=== PATIENT | male | born 1945 | race Asian ===

== ENCOUNTER 2020-12-30 10:04 | Inpatient (IN) | payer MEDICARE, OTHER ==
[~2020-12-30] VITALS: Ht 154.9 cm; Wt 68.2 kg
[2020-12-30] MEDS ORDERED: TERA5CAP77 PO (10:14)
[2020-12-30] MEDS ORDERED: ATOR40TA28 PO (10:14)
[2020-12-30] MEDS ORDERED: ASPI-1444 PO (10:14)
[2020-12-30] MEDS ORDERED: GLIP10 PO (10:14)
[2020-12-30] MEDS ORDERED: SITA100 PO (10:14)
[2020-12-30] MEDS ORDERED: DICY20TA2 PO (10:14)
[2020-12-30] MEDS ORDERED: METF-960 PO (10:14)
[2020-12-30] MEDS ORDERED: SODIUM CHLORIDE 0.9% 1,000 ML IV ONE (10:45)
[2020-12-30] MEDS ORDERED: MORPHINE SULFATE 2 MG/ML SYRINGE IVP ONE (10:45)
[2020-12-30] MEDS ORDERED: ONDANSETRON HCL 4 MG/2 ML VIAL IVP ONE (10:45)
[2020-12-30 11:43] LABS: BASOPHILS % (AUTO) 0.1 % (0.0-2.0); EOSINOPHILS % (AUTO) 0.1 % (1.0-6.0); HEMATOCRIT 41.1 % (41-53); HEMOGLOBIN 13.6 g/dL (13.5-17.5); LYMPHOCYTES # (AUTO) 1.4 K/uL (1.0-4.8); LYMPHOCYTES % (AUTO) 9.9 % (22.0-44.0); MEAN CORPUSCULAR HEMOGLOBIN 26.3 pg (26.0-34.0); MEAN CORPUSCULAR VOLUME 80 fL (80-100); MONOCYTES # (AUTO) 0.7 K/uL (0.1-1.0); NEUTROPHILS # (AUTO) 11.9 K/uL (1.8-7.7); NEUTROPHILS % (AUTO) 84.9 % (40.0-70.0); PLATELET COUNT (AUTO) 220 K/uL (150-450); RED BLOOD CELL COUNT(AUTO) 5.16 MIL/uL (4.50-5.90); RED CELL DISTRIBUTION WIDTH 14.7 % (11.5-14.5)
[2020-12-30 11:44] LABS: CALCIUM, TOTAL 8.6 mg/dL (8.8-10.5); CREATININE 1.4 mg/dL (0.60-1.30); POTASSIUM 4.2 mmol/L (3.5-5.1)
[2020-12-30 11:51] LABS: ALBUMIN 3.3 g/dL (3.4-5.0); BILIRUBIN,TOTAL 0.4 mg/dL (0.1-1.0); TOTAL PROTEIN, SERUM 7.2 g/dL (6.4-8.2)
[2020-12-30 12:25] LABS: COVID AG,FIA SOURCE NASOPHARYNGEAL
[2020-12-30] MEDS ORDERED: DEXTROSE 50%-WATER 25 GM/50 ML SYRINGE IVP PRN (12:30)
[2020-12-30] MEDS ORDERED: MORPHINE SULFATE 2 MG/ML SYRINGE IVP PRN (12:45)
[2020-12-30] MEDS ORDERED: ONDANSETRON HCL 4 MG/2 ML VIAL IVP PRN (12:45)
[2020-12-30] MEDS: SODIUM CHLORIDE 0.9% 1,000 ML IV SCH (13:11)
[2020-12-30] MEDS: PANTOPRAZOLE SODIUM 40 MG/VIAL IVP SCH (13:11)
[2020-12-30] MEDS: TAMSULOSIN HCL 0.4 MG CAPSULE PO SCH ×2 (13:11→20:15)
[2020-12-30 15:40] LABS: APPEARANCE,URINE CLEAR (CLEAR); BILIRUBIN,URINE NEGATIVE (NEGATIVE); GLUCOSE, URINE (UA) NEGATIVE (NEGATIVE); KETONES,URINE NEGATIVE (NEGATIVE); LEUKOCYTE ESTERASE ,URINE NEGATIVE (NEGATIVE); NITRATE,URINE NEGATIVE (NEGATIVE); OCCULT BLOOD,URINE MODERATE (NEGATIVE); PROTEIN,URINE NEGATIVE (NEGATIVE); UROBILINOGEN,URINE 0.2 mg/dL (<=1.0)
[2020-12-30 15:47] VITALS: BP 151/76
[2020-12-30] MEDS: HYDROmorphone 2 MG/ML VIAL IVP PRN ×3 (16:11→23:41)
[2020-12-30 16:32] LABS: BACTERIA,URINE None Seen /HPF (None Seen); RBC,URINE 0-2 /HPF (0-2); SQUAMOUS EPITHELIAL CELL,UR Rare /LPF (None Seen); WBC,URINE 0-2 /HPF (0-5)
[2020-12-30] MEDS: INSULIN LISPRO 100 UNITS/ML SQ PRN (17:12)
[2020-12-30 17:45] LABS: GLUCOMETER DEV NAME(LOC) 6S.1; GLUCOSE,POINT OF CARE 149 MG/DL (70-110)
[2020-12-30 19:46] VITALS: BP 133/58
[2020-12-30 22:18] LABS: GLUCOMETER DEV NAME(LOC) 6S.1; GLUCOSE,POINT OF CARE 110 MG/DL (70-110)
[2020-12-31 00:02] VITALS: BP 116/61
[2020-12-31] MEDS: SODIUM CHLORIDE 0.9% 1,000 ML IV SCH ×2 (03:08→23:44)
[2020-12-31 05:08] VITALS: BP 133/58
[2020-12-31] MEDS ORDERED: SODIUM CHLORIDE 0.9% 1,000 ML ONE ×2 (06:44→07:30)
[2020-12-31 06:59] LABS: GLUCOMETER DEV NAME(LOC) 6N.1; GLUCOSE,POINT OF CARE 131 MG/DL (70-110)
[2020-12-31] MEDS ORDERED: SODIUM CHLORIDE 0.9% 1,000 ML IV ONE (07:00)
[2020-12-31] MEDS ORDERED: SODIUM CHLORIDE 0.9% 0 ML ONE (07:11)
[2020-12-31] MEDS ORDERED: BACITRACIN 50,000 UNITS/VIAL ONE (07:11)
[2020-12-31] MEDS ORDERED: BUPIVACAINE HCL/PF 0.5% 30 ML VIAL ONE (07:11)
[2020-12-31] MEDS ORDERED: SODIUM CL IRRIG SOLN BAG 0 ML IRRIG ONE (07:11)
[2020-12-31] MEDS ORDERED: BUPIVACAINE LIPOSOME/PF 1.3%-13.3MG/ML SUSPENSION 20 ML VIAL INJ ONE (07:15)
[2020-12-31] MEDS ORDERED: RINGERS SOLUTION,LACTATED 0 ML IV ONE (07:30)
[2020-12-31] MEDS ORDERED: ALBUMIN HUMAN 5%-12.5GM/250ML 250 ML IV ONE (07:40)
[2020-12-31] MEDS ORDERED: SUGAMMADEX SODIUM 200 MG/2 ML VIAL IVP ONE (07:40)
[2020-12-31] MEDS ORDERED: MetroNIDAZOLE 500 MG/NACL 100 ML IV ONE (07:52)
[2020-12-31] MEDS ORDERED: FentaNYL CITRATE PF 100 MCG/2 ML VIAL IVP PRN (09:15)
[2020-12-31] MEDS ORDERED: HYDROmorphone 2 MG/ML VIAL IVP PRN (09:15)
[2020-12-31] MEDS ORDERED: MEPERIDINE-PF 25 MG/ML VIAL IVP PRN (09:15)
[2020-12-31] MEDS ORDERED: FentaNYL CITRATE PF 100 MCG/2 ML VIAL ONE (10:56)
[2020-12-31 11:49] VITALS: BP 125/60
[2020-12-31] MEDS ORDERED: LIDOCAINE/PF 2% 5 ML VIAL IM ONE (12:00)
[2020-12-31] MEDS ORDERED: KETOROLAC TROMETHAMINE 60 MG/2 ML VIAL IM ONE (12:00)
[2020-12-31] MEDS ORDERED: DEXAMETHASONE SOD PHOS 4 MG/ML VIAL IVP ONE (12:00)
[2020-12-31] MEDS ORDERED: MORPHINE SULFATE/PF 0.5 MG/ML 10 ML AMP IVP ONE (12:00)
[2020-12-31] MEDS ORDERED: PROPOFOL 1% 20 ML VIAL IVP ONE (12:00)
[2020-12-31] MEDS ORDERED: 0.9% SODIUM CHLORIDE 10 ML VIAL IVP ONE (12:00)
[2020-12-31] MEDS ORDERED: FentaNYL CITRATE PF 100 MCG/2 ML VIAL IVP ONE (12:00)
[2020-12-31] MEDS ORDERED: PHENYLEPHRINE HCL 10 MG/ML VIAL IVP ONE (12:00)
[2020-12-31] MEDS ORDERED: ONDANSETRON HCL 4 MG/2 ML VIAL IVP ONE (12:00)
[2020-12-31] MEDS ORDERED: ROCURONIUM BROMIDE 10 MG/ML 5 ML VIAL IVP ONE (12:00)
[2020-12-31] MEDS: PANTOPRAZOLE SODIUM 40 MG/VIAL IVP SCH (12:01)
[2020-12-31] MEDS: TAMSULOSIN HCL 0.4 MG CAPSULE PO SCH ×2 (12:01→20:04)
[2020-12-31] MEDS: INSULIN LISPRO 100 UNITS/ML SQ PRN ×3 (12:03→20:05)
[2020-12-31] MEDS: HYDROmorphone 2 MG/ML VIAL IVP PRN ×2 (12:52→23:46)
[2020-12-31 14:28] LABS: GLUCOMETER DEV NAME(LOC) 6S.1; GLUCOSE,POINT OF CARE 174 MG/DL (70-110)
[2020-12-31 15:21] VITALS: BP 130/63
[2020-12-31] MEDS: HYDROCODONE/ACETAMINOPHEN 5-325 MG TABLET PO PRN (16:36)
[2020-12-31 19:09] LABS: GLUCOMETER DEV NAME(LOC) 6N.1; GLUCOSE,POINT OF CARE 170 MG/DL (70-110)
[2020-12-31 20:05] VITALS: BP 119/61
[2020-12-31] MEDS: ACETAMINOPHEN 325 MG TABLET PO PRN (20:05)
[2020-12-31 23:47] LABS: GLUCOMETER DEV NAME(LOC) 6S.1; GLUCOSE,POINT OF CARE 174 MG/DL (70-110)
[2020-12-31 23:57] VITALS: BP 99/51
[2021-01-01 05:01] VITALS: BP 108/53
[2021-01-01] MEDS: ACETAMINOPHEN 325 MG TABLET PO PRN ×3 (05:04→21:59)
[2021-01-01] MEDS: INSULIN LISPRO 100 UNITS/ML SQ PRN ×3 (06:06→20:34)
[2021-01-01 07:13] LABS: GLUCOMETER DEV NAME(LOC) 6N.1; GLUCOSE,POINT OF CARE 157 MG/DL (70-110)
[2021-01-01 08:12] VITALS: BP 109/53
[2021-01-01] MEDS: MULTIVITAMINS WITH MINERALS, THERAPEUTIC TABLET PO SCH (09:08)
[2021-01-01] MEDS: CYANOCOBALAMIN 100 MCG TABLET PO SCH (09:08)
[2021-01-01] MEDS: TAMSULOSIN HCL 0.4 MG CAPSULE PO SCH ×2 (09:08→20:23)
[2021-01-01] MEDS: PANTOPRAZOLE SODIUM 40 MG/VIAL IVP SCH (09:09)
[2021-01-01] MEDS: ENOXAPARIN SODIUM 40 MG/0.4 ML PF SYRINGE SQ SCH (09:10)
[2021-01-01] MEDS: KETOROLAC TROMETHAMINE 15 MG/ML VIAL IVP SCH ×2 (10:47→17:27)
[2021-01-01] MEDS: OXYGEN THERAPY IH SCH ×2 (11:07→20:00)
[2021-01-01 11:28] LABS: BASOPHILS % (AUTO) 0.2 % (0.0-2.0); EOSINOPHILS % (AUTO) 0.5 % (1.0-6.0); HEMATOCRIT 33.5 % (41-53); HEMOGLOBIN 10.9 g/dL (13.5-17.5); LYMPHOCYTES # (AUTO) 1.2 K/uL (1.0-4.8); LYMPHOCYTES % (AUTO) 10.3 % (22.0-44.0); MEAN CORPUSCULAR HEMOGLOBIN 26.6 pg (26.0-34.0); MEAN CORPUSCULAR HGB CONC 32.6 G/dL (31.0-37.0); MEAN CORPUSCULAR VOLUME 82 fL (80-100); MONOCYTES # (AUTO) 0.7 K/uL (0.1-1.0); MONOCYTES % (AUTO) 5.6 % (2.0-9.0); NEUTROPHILS % (AUTO) 83.4 % (40.0-70.0); PLATELET COUNT (AUTO) 159 K/uL (150-450); RED BLOOD CELL COUNT(AUTO) 4.11 MIL/uL (4.50-5.90)
[2021-01-01 11:40] VITALS: BP 103/44
[2021-01-01 11:44] LABS: CALCIUM, TOTAL 7.5 mg/dL (8.8-10.5); CREATININE 1.29 mg/dL (0.60-1.30); POTASSIUM 3.5 mmol/L (3.5-5.1)
[2021-01-01 15:13] VITALS: BP 130/63
[2021-01-01 16:36] LABS: GLUCOMETER DEV NAME(LOC) 6S.1; GLUCOSE,POINT OF CARE 151 MG/DL (70-110)
[2021-01-01 19:40] VITALS: BP 109/54
[2021-01-01 20:12] LABS: GLUCOMETER DEV NAME(LOC) 6N.1; GLUCOSE,POINT OF CARE 119 MG/DL (70-110)
[2021-01-01] MEDS: SODIUM CHLORIDE 0.9% 1,000 ML IV SCH (20:26)
[2021-01-01 23:49] LABS: GLUCOMETER DEV NAME(LOC) 6S.1; GLUCOSE,POINT OF CARE 165 MG/DL (70-110)
[2021-01-02 00:05] VITALS: BP 100/51
[2021-01-02] MEDS: HYDROCODONE/ACETAMINOPHEN 5-325 MG TABLET PO PRN ×3 (03:25→23:07)
[2021-01-02 05:08] VITALS: BP 102/41
[2021-01-02 06:43] LABS: GLUCOMETER DEV NAME(LOC) 6N.1; GLUCOSE,POINT OF CARE 111 MG/DL (70-110)
[2021-01-02] MEDS: HYDROmorphone 2 MG/ML VIAL IVP PRN ×2 (07:30→13:33)
[2021-01-02] MEDS: OXYGEN THERAPY IH SCH (08:00)
[2021-01-02 08:02] VITALS: BP 125/56
[2021-01-02] MEDS: PANTOPRAZOLE SODIUM 40 MG/VIAL IVP SCH (08:26)
[2021-01-02] MEDS: CYANOCOBALAMIN 100 MCG TABLET PO SCH (08:26)
[2021-01-02] MEDS: ENOXAPARIN SODIUM 40 MG/0.4 ML PF SYRINGE SQ SCH (08:26)
[2021-01-02] MEDS: TAMSULOSIN HCL 0.4 MG CAPSULE PO SCH ×2 (08:26→20:16)
[2021-01-02] MEDS: MULTIVITAMINS WITH MINERALS, THERAPEUTIC TABLET PO SCH (08:26)
[2021-01-02] MEDS: THIAMINE 100 MG TABLET PO SCH (08:26)
[2021-01-02 10:23] LABS: BASOPHILS % (AUTO) 0.1 % (0.0-2.0); EOSINOPHILS % (AUTO) 0.5 % (1.0-6.0); HEMATOCRIT 32.5 % (41-53); HEMOGLOBIN 10.9 g/dL (13.5-17.5); LYMPHOCYTES # (AUTO) 0.9 K/uL (1.0-4.8); LYMPHOCYTES % (AUTO) 8.8 % (22.0-44.0); MEAN CORPUSCULAR HEMOGLOBIN 26.7 pg (26.0-34.0); MEAN CORPUSCULAR HGB CONC 33.7 G/dL (31.0-37.0); MEAN CORPUSCULAR VOLUME 79 fL (80-100); MONOCYTES # (AUTO) 0.4 K/uL (0.1-1.0); MONOCYTES % (AUTO) 4.2 % (2.0-9.0); PLATELET COUNT (AUTO) 155 K/uL (150-450); RED BLOOD CELL COUNT(AUTO) 4.09 MIL/uL (4.50-5.90); RED CELL DISTRIBUTION WIDTH 14.5 % (11.5-14.5)
[2021-01-02 10:26] LABS: NEUTROPHILS % (AUTO) 86.4 % (40.0-70.0)
[2021-01-02] MEDS: INSULIN LISPRO 100 UNITS/ML SQ PRN ×3 (11:35→20:17)
[2021-01-02 12:49] LABS: GLUCOMETER DEV NAME(LOC) 6S.1; GLUCOSE,POINT OF CARE 178 MG/DL (70-110)
[2021-01-02] MEDS: ACETAMINOPHEN 325 MG TABLET PO PRN ×2 (13:59→23:49)
[2021-01-02 16:03] VITALS: BP 133/65
[2021-01-02 18:13] LABS: APPEARANCE,URINE CLEAR (CLEAR); BILIRUBIN,URINE NEGATIVE (NEGATIVE); GLUCOSE, URINE (UA) NEGATIVE (NEGATIVE); KETONES,URINE TRACE mg/dL (NEGATIVE); LEUKOCYTE ESTERASE ,URINE NEGATIVE (NEGATIVE); NITRATE,URINE NEGATIVE (NEGATIVE); OCCULT BLOOD,URINE MODERATE (NEGATIVE); PROTEIN,URINE NEGATIVE (NEGATIVE); UROBILINOGEN,URINE 0.2 mg/dL (<=1.0)
[2021-01-02 18:34] LABS: BACTERIA,URINE Rare /HPF (None Seen); SQUAMOUS EPITHELIAL CELL,UR Rare /LPF (None Seen); WBC,URINE 0-2 /HPF (0-5)
[2021-01-02 18:42] LABS: GLUCOMETER DEV NAME(LOC) 6S.1; GLUCOSE,POINT OF CARE 164 MG/DL (70-110)
[2021-01-02 20:21] VITALS: BP 150/77
[2021-01-02 23:33] VITALS: BP 154/72
[2021-01-03 00:03] LABS: GLUCOMETER DEV NAME(LOC) 6S.1; GLUCOSE,POINT OF CARE 215 MG/DL (70-110)
[2021-01-03 04:00] VITALS: BP 132/68
[2021-01-03] MEDS: INSULIN LISPRO 100 UNITS/ML SQ PRN ×3 (05:52→17:11)
[2021-01-03 06:38] LABS: GLUCOMETER DEV NAME(LOC) 6N.1; GLUCOSE,POINT OF CARE 161 MG/DL (70-110)
[2021-01-03 07:31] VITALS: BP 130/62
[2021-01-03] MEDS: OXYGEN THERAPY IH SCH ×2 (08:00→20:00)
[2021-01-03] MEDS: TAMSULOSIN HCL 0.4 MG CAPSULE PO SCH ×2 (08:14→20:28)
[2021-01-03] MEDS: HYDROCODONE/ACETAMINOPHEN 5-325 MG TABLET PO PRN ×3 (08:14→23:35)
[2021-01-03] MEDS: MULTIVITAMINS WITH MINERALS, THERAPEUTIC TABLET PO SCH (08:14)
[2021-01-03] MEDS: ENOXAPARIN SODIUM 40 MG/0.4 ML PF SYRINGE SQ SCH (08:15)
[2021-01-03] MEDS: PANTOPRAZOLE SODIUM 40 MG/VIAL IVP SCH (08:15)
[2021-01-03] MEDS: THIAMINE 100 MG TABLET PO SCH (08:15)
[2021-01-03] MEDS: CYANOCOBALAMIN 100 MCG TABLET PO SCH (08:19)
[2021-01-03] MEDS: ACETAMINOPHEN 325 MG TABLET PO PRN (13:44)
[2021-01-03 16:20] VITALS: BP 134/63
[2021-01-03 16:50] LABS: GLUCOMETER DEV NAME(LOC) 6S.1; GLUCOSE,POINT OF CARE 151 MG/DL (70-110)
[2021-01-03 18:59] LABS: GLUCOMETER DEV NAME(LOC) 6N.1; GLUCOSE,POINT OF CARE 150 MG/DL (70-110)
[2021-01-03 20:26] VITALS: BP 113/59
[2021-01-04 00:18] VITALS: BP 125/61
[2021-01-04 04:43] VITALS: BP 119/59
[2021-01-04 05:32] LABS: GLUCOMETER DEV NAME(LOC) 6N.1; GLUCOSE,POINT OF CARE 105 MG/DL (70-110)
[2021-01-04] MEDS: INSULIN LISPRO 100 UNITS/ML SQ PRN ×3 (06:06→21:05)
[2021-01-04 07:07] LABS: GLUCOMETER DEV NAME(LOC) 6S.1; GLUCOSE,POINT OF CARE 162 MG/DL (70-110)
[2021-01-04 08:05] VITALS: BP 116/62
[2021-01-04] MEDS: CYANOCOBALAMIN 100 MCG TABLET PO SCH (09:11)
[2021-01-04] MEDS: PANTOPRAZOLE SODIUM 40 MG/VIAL IVP SCH (09:11)
[2021-01-04] MEDS: MULTIVITAMINS WITH MINERALS, THERAPEUTIC TABLET PO SCH (09:11)
[2021-01-04] MEDS: TAMSULOSIN HCL 0.4 MG CAPSULE PO SCH ×2 (09:11→20:57)
[2021-01-04] MEDS: THIAMINE 100 MG TABLET PO SCH (09:11)
[2021-01-04] MEDS: ENOXAPARIN SODIUM 40 MG/0.4 ML PF SYRINGE SQ SCH (09:13)
[2021-01-04 12:58] LABS: GLUCOMETER DEV NAME(LOC) 6N.1; GLUCOSE,POINT OF CARE 281 MG/DL (70-110)
[2021-01-04 15:44] VITALS: BP 145/63
[2021-01-04 20:33] VITALS: BP 126/63
[2021-01-04] MEDS: GuaiFENesin/D-METHORPHAN [SUGAR-FREE] 200-20MG/10 ML SYRUP UDCUP PO PRN (20:55)
[2021-01-04] MEDS: HYDROmorphone 2 MG/ML VIAL IVP PRN (20:57)
[2021-01-04] MEDS: ACETAMINOPHEN 325 MG TABLET PO PRN (20:58)
[2021-01-04] MEDS: OXYGEN THERAPY IH SCH (21:07)
[2021-01-04 23:01] LABS: GLUCOMETER DEV NAME(LOC) 6N.1; GLUCOSE,POINT OF CARE 227 MG/DL (70-110)
[2021-01-04 23:32] VITALS: BP 127/64
[2021-01-05 03:46] VITALS: BP 125/60
[2021-01-05 06:09] LABS: GLUCOMETER DEV NAME(LOC) 6S.1; GLUCOSE,POINT OF CARE 273 MG/DL (70-110)
[2021-01-05] MEDS: INSULIN LISPRO 100 UNITS/ML SQ PRN ×4 (06:22→21:07)
[2021-01-05 07:00] LABS: BASOPHILS % (AUTO) 0.2 % (0.0-2.0); EOSINOPHILS % (AUTO) 2.2 % (1.0-6.0); HEMATOCRIT 33.7 % (41-53); HEMOGLOBIN 11.5 g/dL (13.5-17.5); LYMPHOCYTES # (AUTO) 1.1 K/uL (1.0-4.8); LYMPHOCYTES % (AUTO) 14.4 % (22.0-44.0); MEAN CORPUSCULAR HEMOGLOBIN 26.3 pg (26.0-34.0); MEAN CORPUSCULAR HGB CONC 34.1 G/dL (31.0-37.0); MEAN CORPUSCULAR VOLUME 77 fL (80-100); MONOCYTES # (AUTO) 0.9 K/uL (0.1-1.0); MONOCYTES % (AUTO) 11.1 % (2.0-9.0); NEUTROPHILS # (AUTO) 5.6 K/uL (1.8-7.7); NEUTROPHILS % (AUTO) 72.1 % (40.0-70.0); PLATELET COUNT (AUTO) 234 K/uL (150-450); RED BLOOD CELL COUNT(AUTO) 4.37 MIL/uL (4.50-5.90); RED CELL DISTRIBUTION WIDTH 14.2 % (11.5-14.5)
[2021-01-05 07:04] LABS: ANION GAP 9 mmol/L (8-16); CALCIUM, TOTAL 8.1 mg/dL (8.8-10.5); CARBON DIOXIDE 26 mmol/L (22-29); CHLORIDE 102 mmol/L (98-107); CREATININE 1.01 mg/dL (0.60-1.30); GLOMERULAR FILTR. RATE CALC > 60 mL/min (>60); GLUCOSE,RANDOM 242 mg/dL (70-110); POTASSIUM 3.5 mmol/L (3.5-5.1); SODIUM SERUM 137 mmol/L (136-145); UREA NITROGEN, BLOOD 8 mg/dL (7-18)
[2021-01-05] MEDS: OXYGEN THERAPY IH SCH (08:00)
[2021-01-05 08:06] VITALS: BP 137/60
[2021-01-05] MEDS: TAMSULOSIN HCL 0.4 MG CAPSULE PO SCH ×2 (08:31→21:07)
[2021-01-05] MEDS: ENOXAPARIN SODIUM 40 MG/0.4 ML PF SYRINGE SQ SCH (08:31)
[2021-01-05] MEDS: CYANOCOBALAMIN 100 MCG TABLET PO SCH (08:31)
[2021-01-05] MEDS: THIAMINE 100 MG TABLET PO SCH (08:31)
[2021-01-05] MEDS: PANTOPRAZOLE SODIUM 40 MG/VIAL IVP SCH (08:31)
[2021-01-05] MEDS: GuaiFENesin/D-METHORPHAN [SUGAR-FREE] 200-20MG/10 ML SYRUP UDCUP PO PRN (08:31)
[2021-01-05] MEDS: MULTIVITAMINS WITH MINERALS, THERAPEUTIC TABLET PO SCH (08:31)
[2021-01-05] MEDS: HYDROmorphone 2 MG/ML VIAL IVP PRN (08:32)
[2021-01-05 12:56] LABS: GLUCOMETER DEV NAME(LOC) 6N.1; GLUCOSE,POINT OF CARE 237 MG/DL (70-110)
[2021-01-05 12:57] LABS: GLUCOMETER DEV NAME(LOC) 6S.1; GLUCOSE,POINT OF CARE 240 MG/DL (70-110)
[2021-01-05 15:25] VITALS: BP 136/70
[2021-01-05 18:33] LABS: GLUCOMETER DEV NAME(LOC) 6N.1; GLUCOSE,POINT OF CARE 245 MG/DL (70-110)
[2021-01-05 20:03] VITALS: BP 113/56
[2021-01-05] MEDS: BENZONATATE 100 MG CAPSULE PO PRN (21:06)
[2021-01-05] MEDS: HYDROCODONE/ACETAMINOPHEN 5-325 MG TABLET PO PRN (21:06)
[2021-01-05 21:52] LABS: GLUCOMETER DEV NAME(LOC) 6S.1; GLUCOSE,POINT OF CARE 231 MG/DL (70-110)
[2021-01-06 00:15] VITALS: BP 112/61
[2021-01-06 04:30] VITALS: BP 127/65
[2021-01-06] MEDS: HYDROCODONE/ACETAMINOPHEN 5-325 MG TABLET PO PRN (05:49)
[2021-01-06] MEDS: BENZONATATE 100 MG CAPSULE PO PRN (05:49)
[2021-01-06] MEDS: INSULIN LISPRO 100 UNITS/ML SQ PRN ×3 (05:49→16:54)
[2021-01-06] MEDS: OXYGEN THERAPY IH SCH (08:00)
[2021-01-06] MEDS: ENOXAPARIN SODIUM 40 MG/0.4 ML PF SYRINGE SQ SCH (08:03)
[2021-01-06] MEDS: CYANOCOBALAMIN 100 MCG TABLET PO SCH (08:03)
[2021-01-06] MEDS: PANTOPRAZOLE SODIUM 40 MG/VIAL IVP SCH (08:03)
[2021-01-06] MEDS: MULTIVITAMINS WITH MINERALS, THERAPEUTIC TABLET PO SCH (08:03)
[2021-01-06] MEDS: THIAMINE 100 MG TABLET PO SCH (08:03)
[2021-01-06] MEDS: TAMSULOSIN HCL 0.4 MG CAPSULE PO SCH (08:03)
[2021-01-06 08:37] VITALS: BP 105/58
[2021-01-06 11:01] LABS: GLUCOMETER DEV NAME(LOC) 6S.1; GLUCOSE,POINT OF CARE 206 MG/DL (70-110)
[2021-01-06 14:21] LABS: GLUCOMETER DEV NAME(LOC) 6S.1; GLUCOSE,POINT OF CARE 236 MG/DL (70-110)
[2021-01-06 16:15] VITALS: BP 123/67
[2021-01-06 17:35] LABS: GLUCOMETER DEV NAME(LOC) 6S.1; GLUCOSE,POINT OF CARE 212 MG/DL (70-110)
== END 2021-01-06 17:30 | disposition home or self-care (01) | DRG 330 ==
LOC: EMS 10:17 → 6N 12:32
PROVIDERS: ADMIT Internal Medicine; ATTEND Internal Medicine
PROC: 0DBN0ZZ Excision of Sigmoid Colon, Open Approach (ICD-10-PCS; principal; 2020-12-31 08:00)
DX: C18.7 Malignant neoplasm of sigmoid colon (principal); K56.609 Unspecified intestinal obstruction, unspecified as to partial versus complete obstruction; Q43.8 Other specified congenital malformations of intestine; E11.9 Type 2 diabetes mellitus without complications; N40.0 Benign prostatic hyperplasia without lower urinary tract symptoms; Z20.822 Contact with and (suspected) exposure to COVID-19; D72.829 Elevated white blood cell count, unspecified; E66.9 Obesity, unspecified; R97.20 Elevated prostate specific antigen [PSA]; E78.00 Pure hypercholesterolemia, unspecified; F17.200 Nicotine dependence, unspecified, uncomplicated; I10 Essential (primary) hypertension; Z83.3 Family history of diabetes mellitus; Z68.28 Body mass index [BMI] 28.0-28.9, adult; Z79.899 Other long term (current) drug therapy
CPT/HCPCS: 71045; 74018; 74176; 80048; 80053; 81001; 82378; 82962; 83690; 84153; 84484; 85025; 87040; 87081; 88309; 93005; 97116; 97161; 97530; 99285; A9575; C9113; C9290; G0238; J0690; J1100; J1170; J1650; J1885; J2270; J2274; J2370; J2405; J2704; J3010; J3490; J7030; J7120; P9041; 36415-L1; 36415-TC; U0003; Z7610

== ENCOUNTER 2021-01-23 20:24 | Emergency (ER) | payer MEDICARE, OTHER ==
[~2021-01-23] VITALS: Ht 157.5 cm; Wt 62.3 kg
[~2021-01-23 20:24] MED LIST: ASPI-1444 PO; ATOR40TA28 PO; METF-960 PO; TERA5CAP77 PO
[2021-01-23] MEDS ORDERED: GLIP5 PO (20:29)
[2021-01-23 22:00] VITALS: BP 115/58
[2021-01-23 22:02] LABS: BASOPHILS % (AUTO) 1.2 % (0.0-2.0); EOSINOPHILS % (AUTO) 3.4 % (1.0-6.0); HEMATOCRIT 34.8 % (41-53); HEMOGLOBIN 11.6 g/dL (13.5-17.5); LYMPHOCYTES # (AUTO) 2.1 K/uL (1.0-4.8); LYMPHOCYTES % (AUTO) 34.4 % (22.0-44.0); MEAN CORPUSCULAR HEMOGLOBIN 26.3 pg (26.0-34.0); MEAN CORPUSCULAR HGB CONC 33.3 G/dL (31.0-37.0); MEAN CORPUSCULAR VOLUME 79 fL (80-100); MONOCYTES # (AUTO) 0.5 K/uL (0.1-1.0); MONOCYTES % (AUTO) 8.6 % (2.0-9.0); NEUTROPHILS # (AUTO) 3.3 K/uL (1.8-7.7); NEUTROPHILS % (AUTO) 52.4 % (40.0-70.0); PLATELET COUNT (AUTO) 229 K/uL (150-450); RED CELL DISTRIBUTION WIDTH 14.7 % (11.5-14.5)
[2021-01-23 22:13] LABS: CALCIUM, TOTAL 8.8 mg/dL (8.8-10.5); CREATININE 1.51 mg/dL (0.60-1.30); POTASSIUM 4.5 mmol/L (3.5-5.1)
[2021-01-23 22:20] LABS: ALBUMIN 3.3 g/dL (3.4-5.0); BILIRUBIN,TOTAL 0.2 mg/dL (0.1-1.0); TOTAL PROTEIN, SERUM 6.7 g/dL (6.4-8.2)
== END 2021-01-23 22:30 | disposition home or self-care (01) ==
LOC: EMS 20:30
DX: T81.31XA Disruption of external operation (surgical) wound, not elsewhere classified, initial encounter (principal); R79.89 Other specified abnormal findings of blood chemistry; E11.9 Type 2 diabetes mellitus without complications; E78.00 Pure hypercholesterolemia, unspecified; I10 Essential (primary) hypertension; Z79.84 Long term (current) use of oral hypoglycemic drugs; Z79.82 Long term (current) use of aspirin
CPT/HCPCS: 80053; 82962; 85025; 99283